=== PATIENT | female | born 1975 | race African-American/Black ===

== ENCOUNTER → 2022-06-17 12:17 | Outpatient (CLI) | payer OTHER, SELFPAY ==
--- NOTE | ~2022-06-17 | MR_ITS ---
EXAMINATION: MR knee LT wo con DATE: 06/17/2022 13:27 INDICATION: Medial left knee pain for a few months. No trauma TECHNIQUE: Magnetic resonance imaging (MRI) of the left knee was performed without intravenous contra st. Sequences included axial PD-weighted FS FSE, coronal PD-weighted FSE and PD-weighted FS FSE, sagi ttal PD-weighted FSE, and sagittal T2-weighted FS FSE. COMPARISON: None. FINDINGS: Medial compartment: Horizontally oriented linear signal in the posterior horn of the medial meniscus with an adjacent men iscal cyst. Mild diffuse cartilage thinning without focal defect. Lateral compartment: Meniscus intact. Mild diffuse cartilage thinning, without focal defect. Patellofemoral compartment: Partial-thickness cartilage fissure on the median ridge. Retinacula are intact. Ligaments and tendons: ACL, PCL MCL, and LCL are intact. The remaining flexor and extensor tendons are intact Fluid: No significant joint effusion. Multiloculated circumscribed 2.6 cm cystic structure distending the fi bers of the MCL and probably in communication with the above-described perimeniscal cyst. Osseous/other: No suspicious focal or diffuse marrow signal. IMPRESSION: 1. Horizontally oriented tear of the posterior horn, medial meniscus, likely extending to the articul ar surface. 2. Moderate sized perimeniscal cyst which distends the fibers of the medial capsule and MCL. 3. Mild tricompartmental osteoarthritic change. Reviewed, dictated and finalized at location [facility]. [employer] IMPRESSION: 1. Horizontally oriented tear of the posterior horn, medial meniscus, likely ex tending to the articular surface. 2. Moderate sized perimeniscal cyst which distends the fibers of the medial cap alexei and MCL. 3. Mild tricompartmental osteoarthritic change.
== END ==
PROVIDERS: PCP Internal Medicine; Visit Provider Orthopaedic Surgery
DX: S83.242A Other tear of medial meniscus, current injury, left knee, initial encounter (principal); M23.004 Cystic meniscus, unspecified medial meniscus, left knee; M17.12 Unilateral primary osteoarthritis, left knee
CPT/HCPCS: 73721